=== PATIENT | male | born 1960 ===

== ENCOUNTER 2018-12-14 13:06 | Emergency (ER) | payer SELFPAY ==
[2018-12-14] MEDS ORDERED: Lidocaine 1% w/Epinephrine 1:100K 20 ML VIAL ONE (15:29)
[2018-12-14] MEDS ORDERED: Adacel (T-DAP) 0.5 ML SYRINGE ONE (16:40)
[2018-12-14] MEDS ORDERED: Bacitracin Zinc 1 Packet ONE (16:40)
[2018-12-14] MEDS ORDERED: Ondansetron PF 4 MG/2 ML Vial ONE (16:49)
[2018-12-14] MEDS ORDERED: Ondansetron ODT 4 MG TAB ONE (16:50)
== END 2018-12-14 17:14 | disposition home or self-care (01) ==
LOC: ERS 13:06
DX: S01.01XA Laceration without foreign body of scalp, initial encounter (principal); S01.81XA Laceration without foreign body of other part of head, initial encounter; I10 Essential (primary) hypertension; W01.198A Fall on same level from slipping, tripping and stumbling with subsequent striking against other object, initial encounter
CPT/HCPCS: 12002; 90471; 90715; J2001; J2405; Q0162